=== PATIENT | female | born 1990 | race Caucasian/White ===

== ENCOUNTER 2016-10-04 01:51 | Emergency (ER) | payer BC ==
[~2016-10-04] VITALS: Ht 165.1 cm; Wt 103.4 kg
[~2016-10-04 01:51] MED LIST: AUGMENTIN 500 M1 TAB PO; HYDROCODONE BIT1 T11 PO
[2016-10-04] MEDS ORDERED: ACETAMINOPHEN-O1 TAB PO (02:14)
[2016-10-04 02:29] LABS: BILIRUBIN NEGATIVE (NEGATIVE); BLOOD 2+ (NEGATIVE); CLARITY CLEAR (CLEAR); COLOR YELLOW (YELLOW); GLUCOSE NEGATIVE (NEGATIVE); KETONE NEGATIVE (NEGATIVE); LEUKO ESTERASE 1+ (NEGATIVE); NITRITE NEGATIVE (NEGATIVE); PH 5.5 (5.0-9.0); PROTEIN NEGATIVE (NEGATIVE); UROBILINOGEN 0.2 E.U./dl (0.2-1.0)
[2016-10-04 02:39] LABS: BACTERIA 2+; URINE REFLEX COMMENT YES (NO)
[2016-10-04 02:44] LABS: BASO # 0.1 10*3/uL (0.0-0.1); BASO % 0.4 % (0.0-1.0); EOS # 0.2 10*3/uL (0.0-0.4); EOS % 1.9 % (1.0-4.0); HEMATOCRIT 36.6 % (37.0-47.0); HEMOGLOBIN 11.5 g/dl (12.0-16.0); IG # 0.1 10*3/uL (0.0-0.1); LYMPH # 2.5 10*3/uL (1.3-4.4); LYMPH % 19.7 % (27.0-41.0); MEAN CELL VOLUME 83.8 fl (81.0-99.0); MEAN CORPUSCULAR HGB 26.3 pg (27.0-31.0); MEAN CORPUSCULAR HGB CONC 31.4 g/dl (33.0-37.0); MONO # 0.5 10*3/uL (0.1-1.0); MONO % 3.6 % (3.0-9.0); NEUT # 9.5 10*3/uL (2.3-7.9); NEUT % 73.8 % (47.0-73.0); PLATELET COUNT AUTOMATED 366 10*3/uL (130-400); RED BLOOD COUNT 4.37 10*6/uL (4.10-5.10); RED CELL DISTRI WIDTH 14.3 % (0-14.5); WHITE BLOOD COUNT 12.8 10*3/uL (4.8-10.8)
[2016-10-04 02:57] LABS: BUN 23 mg/dl (7-24); CARBON DIOXIDE 31 mmol/L (21-32); CHLORIDE 106 mmol/L (98-107); EST GLOM FILT AFRICAN AMERICAN > 60 ml/min; GLUCOSE 112 mg/dL (65-99); POTASSIUM 4.3 mmol/L (3.5-5.1); SODIUM 141 mmol/L (136-145)
[2016-10-04 03:00] LABS: BILIRUBIN, DIRECT 0.1 mg/dL (0.0-0.2); BILIRUBIN, TOTAL 0.3 mg/dl (0.2-1.0)
[2016-10-04] MEDS ORDERED: HYDROCODONE BIT1 T11 PO (04:30)
[2016-10-04] MEDS ORDERED: CIPRO250 MG PO (04:30)
== END 2016-10-04 04:58 | disposition home or self-care (01) ==
LOC: ED 01:51
PROVIDERS: Emergency Medicine Emergency Medical Services
DX: O86.20 Urinary tract infection following delivery, unspecified (principal); Z98.890 Other specified postprocedural states

== ENCOUNTER 2022-03-24 22:32 | Emergency (ER) | payer BC ==
[~2022-03-24] VITALS: Ht 165.1 cm; Wt 117.9 kg
[~2022-03-24 22:32] MED LIST changes: +ACETAMINOPHEN-O1 TAB PO; +CIPRO250 MG PO
== END 2022-03-25 01:03 | disposition home or self-care (01) ==
LOC: ED 22:32
DX: H60.91 Unspecified otitis externa, right ear (principal); Z79.2 Long term (current) use of antibiotics; Z79.899 Other long term (current) drug therapy; Z98.890 Other specified postprocedural states